=== PATIENT | male | born 1965 | race Caucasian/White ===

== ENCOUNTER 2018-03-30 06:14 | Day surgery (SDC) | payer OTHER ==
[2018-03-27 14:22] VITALS: BMI 28.4
[2018-03-30] MEDS ORDERED: GABAPENTIN 300 MG CAPSULE (FP) PO STA (06:23)
[2018-03-30] MEDS ORDERED: oxyCODONE HCL 10 MG SUSTAINED ACTING TABLET PO STA (06:23)
[2018-03-30] MEDS ORDERED: LIDOCAINE 1%/EPI 1:100000 (20 ML MULTI DOSE VIAL) ONE (07:21)
[2018-03-30] MEDS ORDERED: methylPREDNISolone ACET (DEPO) 40 MG/1 ML VIAL ONE (07:21)
[2018-03-30] MEDS ORDERED: THROMBIN (BOVINE) 5,000 UNIT VIAL TP ONE ×2 (07:21→10:03)
--- NOTE | 2018-03-30 07:39 | HP ---
History & Physical Update - History History: No Change - Physical Physical: No Change - Assessment Assessment: No Change - Plan Plan: No Change (Initial H&P is located in patient's paper chart. No new complaints or medications. Scheduled for L4/5 laminectomy. C/o low back pain with RLE radiculopathy.)
[2018-03-30] MEDS ORDERED: MIDAZOLAM HCL 2 MG/2 ML SINGLE DOSE VIAL ONE ×2 (07:55→08:55)
[2018-03-30] MEDS ORDERED: BUPIVACAINE HCL/PF (5 MG/ML) 30 ML VIAL IJ ONE (07:55)
[2018-03-30] MEDS ORDERED: PROPOFOL 20 ML ONE ×2 (08:29)
[2018-03-30] MEDS ORDERED: SUCCINYLCHOLINE CHLORIDE 200 MG/10 ML VIAL ONE (08:29)
[2018-03-30] MEDS ORDERED: LIDOCAINE HCL/PF 2% SDV 5ML VIAL ONE (08:30)
[2018-03-30] MEDS ORDERED: ceFAZolin SODIUM 1 GM VIAL ONE (08:42)
[2018-03-30] MEDS ORDERED: DEXAMETHASONE SOD PHOSPHATE 4 MG/1 ML VIAL ONE ×2 (08:53→09:58)
[2018-03-30] MEDS ORDERED: ONDANSETRON 4 MG/2 ML VIAL ONE ×2 (08:53→09:58)
[2018-03-30] MEDS ORDERED: LIDOCAINE HCL 1%, 10 MG/ML (50 mL VIAL) IJ ONE (09:10)
[2018-03-30] MEDS ORDERED: methylPREDNISolone ACET (DEPO) 40 MG/1 ML VIAL IM ONE (10:04)
[2018-03-30] MEDS ORDERED: GELATIN SPONGE,ABSORBABLE 1 GM PACKET TP ONE (10:04)
--- NOTE | 2018-03-30 10:22 | OP ---
Operative Note - Note: Operative Date: 03/30/18 Pre-Operative Diagnosis: L4/5 stenosis, radiculopathy Operation: L4/5 bilateral laminectomy Post-Operative Diagnosis: Same as Pre-op Surgeon: Ben Jeong Core Winder: Michele Henry Anesthesiologist/SILO PAINTER: Theresa Sepulveda Anesthesia: Spinal Estimated Blood Loss (mls): 20 Fluid Volume Replaced (mls): 800 Operative Report Dictated: Yes
[2018-03-30] MEDS ORDERED: ONDANSETRON 4 MG/2 ML VIAL IVPUSH PRN (10:25)
[2018-03-30] MEDS ORDERED: oxyCODONE HCL 5 MG TABLET PO PRN (10:25)
--- NOTE | 2018-03-30 10:25 | SURG ---
Surgery Director Pharmacology Note Director Pharmacology: Michele Henry PA-C Date of Service: 03/30/18 Diagnosis: L4/5 stenosis, radiculopathy Procedure: L4/5 bilateral laminectomy I was present for the entirety of the operative procedure. For further detail, please refer to operative report. Visit type - Case Type Case Type: Scheduled - New patient This patient is new to me today: Yes Date on this admission: 03/30/18
[2018-03-30] MEDS ORDERED: LACTATED RINGERS SOLUTION 1,000 ML IV SCH (10:30)
[2018-03-30 12:07] VITALS: PULSE 81; TEMP 98.1
--- NOTE | 2018-03-30 13:00 | OP ---
DATE OF OPERATION: 03/29/2018 PREOPERATIVE DIAGNOSIS: Spinal stenosis L4-L5. POSTOPERATIVE DIAGNOSIS: Spinal stenosis L4-L5. PROCEDURE PERFORMED: Laminectomy L4-L5. SURGEON: Ben Jeong MD BEAD CUTTER: SUDHA Arenas ESTIMATED BLOOD LOSS: 50 mL. IV FLUIDS: Per Anesthesia. ANESTHESIA: Spinal/TLIP. COMPLICATIONS: There were none. DISPOSITION: The patient was brought to the PACU in stable condition. INDICATIONS FOR SURGERY: The patient is a 52-year-old gentleman who has been suffering from pain from his back down his legs. X-rays and MRI were completed, which noted that he had spinal stenosis at L4-L5. He had gone through an exhaustive course of treatment for this, which included medications and injections. Unfortunately, his pain continued to persist despite all this. Risks, benefits , and alternatives were discussed, and the patient consented to surgery. DESCRIPTION OF PROCEDURE: The patient was brought to the operating room by the Anesthesia staff. After appropriate patient identification was performed, spinal anesthesia was given along with a TLIP block. The patient was able to position himself prone onto the OR table with all areas of bony prominences well padded at this time. Two needles were placed into his back to j luis off the L4 and S1 segments, and x-ray was taken to confirm this was correct. The needle was removed, and 10 mL of lidocaine with epinephrine was injected into his back. At this time, his back was prepped and draped in a sterile manner. At this point, a time-out was completed. An incision was made from the top of L4 down to the bottom of L5. Dissection was carried down to the fascia. Fascia was split open at this time, and appropriate retractor was then placed in. A spinal needle was placed onto the L4 lamina to j luis off the L4-L5 level. X-ray was taken to confirm this was correct. Needle was removed, and the microscope was brought in. The interspinous ligament at L5 was removed. Portions of the L4-L5 spinous process were removed. Portions of the L4 lamina were removed. Ligamentum flavum was identified, and it was removed. A complete decompression was performed such that by the end of the procedure the L5 nerve root appeared to be well decompressed. All bleeding was well controlled at this time. Steri-Strips was placed over the nerve root. FloSeal was placed over that. The fascia was closed with a No. 1 Vicryl suture. The subcutaneous tissue was closed with 2-0 Vicryl suture. The skin was closed with 3-0 Monocryl suture. Dermabond was applied. Steri-Strips were applied. A sterile dressing was applied. The patient was placed supine on the OR bed and brought to the PACU in stable condition. Lalit MORA/[id number] MTDD
[2018-03-30 14:23] VITALS: BP 137/73
== END 2018-03-30 12:40 | disposition home or self-care (01) ==
LOC: FASU 06:14
PROVIDERS: ATTEND Orthopaedic Surgery Orthopaedic Surgery of the Spine
PROC: 01NB0ZZ Release Lumbar Nerve, Open Approach (ICD-10-PCS; principal; 2018-03-30 08:15)
DX: M48.07 Spinal stenosis, lumbosacral region (principal)
CPT/HCPCS: 72100-TC-FY; 94760